=== PATIENT | male | born 1960 | race Caucasian/White ===

== ENCOUNTER → 2017-03-14 12:29 | Outpatient (CLI) | payer BC | END | disposition home or self-care (01) | LOC: D.NM 12:29 | DX: R10.11 Right upper quadrant pain (principal) ==

== ENCOUNTER 2017-03-27 05:06 | Day surgery (SDC) | payer BC ==
[~2017-03-27] VITALS: Ht 177.8 cm; Wt 101.6 kg
[~2017-03-27 05:06] MED LIST: HYDROCODONE-APA1 TAB PO
[2017-03-27] MEDS ORDERED: TYLENOL W/CODEI1 TAB PO (07:16)
[2017-03-27 07:17] VITALS: BP 121/82; Ht 177.8 cm; Wt 101.6 kg
[2017-03-27] MEDS ORDERED: OXYCODONE HCL5 MG PO (10:45)
--- NOTE | 2017-03-27 14:55 | NUR ---
STATES NAUSEA IS BETTER AND READY FOR DISCHARGE. IV REMOVED INTACT. DISCHARGE INSTRUCTIONS AND PAIN RX GIVEN, REMINDED AXEL WAS CALLED TO [facility], VOICED UNDERSTANDING. DISCHARGED HOME VIA WC.
--- NOTE | 2017-03-28 08:51 | OP ---
PATIENT NAME: SAMEER BURRELL MEDICAL RECORD: [id number] :64 LOCATION:[facility] ADMISSION DATE: SURGEON: FRANKLIN GAMEZ MD DATE OF OPERATION: 03/27/2017 SURGEON: Franklin Gamez MD PREOPERATIVE DIAGNOSIS: Symptomatic cholelithiasis without obstruction. POSTOPERATIVE DIAGNOSES: 1. Symptomatic cholelithiasis without obstruction. 2. Right upper quadrant pain. PROCEDURE: Laparoscopic cholecystectomy. ANESTHESIA: General. COMPLICATIONS: None. SPECIMENS: Gallbladder. Case was clean contaminated. ESTIMATED BLOOD LOSS: 20 cc. OPERATIVE COURSE: After consent was obtained, the patient was taken to the operating room and placed in the supine position on the operating table. Next, general anesthesia was given via endotracheal intubation after a timeout was taken to confirm the correct patient and procedure. The abdomen was then prepped and draped in typical sterile fashion. Local anesthetic was injected just above the umbilicus. A stab incision was made with an 11-blade scalpel. Using a 5-mm bladeless optical trocar, the abdomen was entered under direct laparoscopic vision. Adequate pneumoperitoneum was achieved. The abdominal cavity was inspected. No evidence of bowel injury. No evidence of bleeding. The patient was placed in the steep reverse Trendelenburg position. All remaining trocars were placed. Two 5-mm trocars in the right upper quadrant and 11-mm trocar in the subxiphoid position after administration of local anesthetic. All were placed under direct laparoscopic vision. The fundus of the gallbladder was then grasped and retracted cephalad. The infundibulum was grasped and retracted laterally. The peritoneum was incised using electrocautery. Blunt dissection was performed with a [place] dissection until the critical view was obtained, cystic duct lateral, cystic artery medial, liver in the posterior window. At this time, 3 clips were placed in the proximal cystic duct, 1 clip distal, 2 clips were placed in the proximal cystic artery. The duct and artery were then transected with laparoscopic Metzenbaum scissors. The remaining portion of the gallbladder was dissected off the liver bed using electrocautery. Once complete, it was grasped with the tenaculum and removed through the 11-mm trocar and sent for permanent pathology. At this time, the operative site was copiously irrigated and suctioned. Careful attention was paid to hemostasis, which was obtained in the liver bed using electrocautery. The operative site was reinspected, there is [address] in the cystic duct, [address] in the cystic artery. At this time, the remaining portion of the abdominal cavity was copiously irrigated and suctioned. The liver bed was inspected as was the remaining portion of the abdomen. There was no evidence of bowel injury. No evidence of bleeding. No evidence of bile OPERATIVE REPORT [id number] SAMEER BURRELL. At this time, all remaining instruments were removed. The abdomen was desufflated. Trocars were then removed. The skin was closed with 4-0 Monocryl, Mastisol and Steri-Strips. At the end of the case, all needle and instrument counts were correct. No complications occurred. The patient was extubated and transferred to the PACU in stable condition. TRANSINT:[id number] Voice Confirmation ID: [id number] DOCUMENT ID: [id number] FRANKLIN GAMEZ MD at 0851 CC: [id number] DICTATION DATE: 03/27/171043 MASCARA MOLDER: 03/27/172055 [facility] 03/27/17 [id number] [place] [address]
== END 2017-03-27 14:55 | disposition home or self-care (01) ==
LOC: D.OPS 05:06 → D.PAN 09:00 → D.OPS 09:15 → D.PAN 09:15 → D.OPS 14:55
DX: K80.10 Calculus of gallbladder with chronic cholecystitis without obstruction (principal)

== ENCOUNTER 2021-03-14 16:00 | Outpatient (CLI) | payer OTHER ==
[2020-11-18 13:37] VITALS: BMI 33.0
[~2021-03-14 16:00] MED LIST changes: +OXYCODONE HCL5 MG PO; +TYLENOL W/CODEI1 TAB PO
== END 2021-03-14 23:59 | disposition home or self-care (01) ==
LOC: D.MAMMO 16:00
PROVIDERS: ATTEND Nurse Practitioner Family
DX: N63.13 Unspecified lump in the right breast, lower outer quadrant (principal)

== ENCOUNTER → 2021-04-04 08:19 | Outpatient (CLI) | payer OTHER ==
[2020-11-18 13:37] VITALS: BMI 33.0
== END | disposition home or self-care (01) ==
LOC: D.US 08:19
PROVIDERS: ATTEND Surgery
DX: N63.13 Unspecified lump in the right breast, lower outer quadrant (principal)

== ENCOUNTER → 2021-04-28 14:14 | Outpatient (CLI) | payer OTHER ==
[2020-11-18 13:37] VITALS: BMI 33.0
== END | disposition home or self-care (01) ==
LOC: D.LABREF 14:14
PROVIDERS: ATTEND Surgery
DX: N63.10 Unspecified lump in the right breast, unspecified quadrant (principal); L98.9 Disorder of the skin and subcutaneous tissue, unspecified